=== PATIENT | male | born 1990 | race Caucasian/White ===

== ENCOUNTER 2023-07-30 13:58 | Emergency (ER) | payer SELFPAY ==
[~2023-07-30] VITALS: Ht 188 cm; Wt 105.9 kg
[2023-07-30 14:15] VITALS: O2SAT 98
[2023-07-30] MEDS ORDERED: ONDANSETRON HCL 4MG/2ML INJ IV STA (14:23)
[2023-07-30] MEDS ORDERED: MORPHINE SULFATE 4 MG/ML CPJ (NOT FOR IM USE) IV STA (14:23)
[2023-07-30] MEDS ORDERED: SODIUM CHLORIDE 0.9% 1,000 ML IV ONE (14:30)
[2023-07-30 15:29] LABS: BASOPHILS % 0.1 % (0.0-2.0); EOSINOPHILS % 1.3 % (0.0-5.0); HEMATOCRIT. 34.6 % (42.0-52.0); HEMOGLOBIN. 12.2 g/dL (14.0-18.0); LYMPHOCYTES % 16.3 % (20.0-50.0); MEAN CORPUSCULAR HEMOGLOBIN 34.1 pg (28.0-32.0); MEAN CORPUSCULAR HGB CONC 35.2 g/dL (31.0-37.0); MEAN CORPUSCULAR VOLUME 97.1 fL (80.0-94.0); MEAN PLATELET VOLUME 7.3 fl (7.4-10.4); MONOCYTES % 4.7 % (2.0-8.0); NEUTROPHILS % 77.6 % (40.0-76.0); PLATELET 233 x1000/uL (130-400); RED BLOOD CELL COUNT 3.56 mill/uL (4.7-6.1); RED CELL DISTRIBUTION WIDTH 13.2 % (11.6-14.6); WHITE BLOOD COUNT 9.9 x1000/uL (4.5-11.0)
[2023-07-30 15:30] LABS: D-DIMER < 0.19 mg/L FEU (<0.50); INR 1.2; PROTHROMBIN TIME 12.8 sec (9.6-11.0)
[2023-07-30 15:32] LABS: CHLORIDE 103 mEq/L (98-107); INDEX HEMOLYSI 1 (1-3); INDEX ICTERIC 1 (1-4); INDEX LIPEMIC 1 (1-3); POTASSIUM 3.7 mEq/L (3.5-5.1); SODIUM 137 mEq/L (136-145)
[2023-07-30 15:42] LABS: ALANINE AMINOTRANSFERASE 23 IU/L (13-61); ALBUMIN 4.2 g/dL (3.4-5.0); ASPARTATE AMINOTRANSFERASE 21 IU/L (15-37); BILIRUBIN TOTAL 0.6 mg/dL (0.1-1.0); CALCIUM 8.7 mg/dL (8.5-10.1); CARBON DIOXIDE 29 mEq/L (21-32); GLUCOSE 101 mg/dL (70-105); NT PRO B-TYPE NATRIURETIC PEP 36 pg/mL (5-125); PROTEIN TOTAL 7.3 g/dL (6.0-8.3); TROPONIN I HIGH SENSITIVITY 4 ng/L (<78); UREA NITROGEN BLOOD 23 mg/dL (7-21)
[2023-07-30] MEDS ORDERED: CIPR500T5 MT (16:59)
[2023-07-30] MEDS ORDERED: HYDR-4001 MT (16:59)
[2023-07-30 17:30] VITALS: BP 139/67; PULSE 74; RESP 18; TEMP 97.9
== END 2023-07-30 17:31 | disposition home or self-care (01) ==
LOC: ER 14:07
DX: N50.812 Left testicular pain (principal); N50.811 Right testicular pain; R06.02 Shortness of breath
CPT/HCPCS: 80053; 83880; 83605; 85025; 85379; 85610; 84484; 36415; 71045; 93976; 76870; 93005; 96361; 96374; 96375; 99285; J2405; J2270; J7030; Z7610 ×3